=== PATIENT | female | born 1985 | race Caucasian/White ===

== ENCOUNTER 2019-09-29 02:27 | Inpatient (IN) | payer BC, OTHER ==
[~2019-09-29] VITALS: Ht 160 cm; Wt 72.7 kg
[2019-09-29 02:42] VITALS: BP 124/69
[2019-09-29] MEDS ORDERED: D5%-LACTATED RINGERS 1,000 ML IV SCH (02:57)
[2019-09-29] MEDS ORDERED: LACTATED RINGERS 1,000 ML IV SCH (02:57)
[2019-09-29] MEDS ORDERED: OXYTOCIN 30U/ 0.9% NaCL 500ML 500 ML IV ONE (02:57)
[2019-09-29] MEDS ORDERED: NEWBORN KIT ONE (03:00)
[2019-09-29] MEDS ORDERED: CALCIUM CARBONATE 500 MG TAB.CHEW PO PRN (03:00)
[2019-09-29] MEDS ORDERED: FENTANYL PF 100 MCG/2ML IV PRN (03:00)
[2019-09-29] MEDS ORDERED: TERBUTALINE 1 MG/ML, 1ML IVPush PRN (03:00)
[2019-09-29] MEDS ORDERED: ONDANSETRON 2MG/ML, 2ML IVPush PRN (03:00)
[2019-09-29] MEDS ORDERED: FENTANYL PF 100 MCG/2ML IVPush PRN (03:00)
[2019-09-29] MEDS ORDERED: OXYTOCIN 30U/ 0.9% NaCL 500ML 500 ML ONE (03:00)
[2019-09-29] MEDS ORDERED: TERBUTALINE 1 MG/ML, 1ML SQ PRN (03:00)
[2019-09-29] MEDS ORDERED: PLEASE ENTER ALLERGIES MC SCH (03:30)
[2019-09-29 03:34] LABS: BASOPHILS # (AUTO) 0.03 x10^3/uL (0-0.1); BASOPHILS % (AUTO) 0 % (0-1); EOSINOPHILS # (AUTO) 0.01 x10^3/uL (0-0.4); EOSINOPHILS % (AUTO) 0 % (1-7); LYMPHOCYTES # (AUTO) 1.31 x10^3/uL (1-3.4); LYMPHOCYTES % (AUTO) 8 % (22-44); MD NO; MEAN CORPUSCULAR HEMOGLOBIN 30.4 pg (27.0-34.8); MEAN CORPUSCULAR HGB CONC 33.6 g/dL (32.4-35.8); MEAN CORPUSCULAR VOLUME 90.5 fL (80-100); MEAN PLATELET VOLUME 8.6 fL (7.4-10.4); MONOCYTES # (AUTO) 0.74 x10^3/uL (0.2-0.8); MONOCYTES % (AUTO) 5 % (2-9); NEUTROPHILS # (AUTO) 14.25 x10^3/uL (1.8-6.8); NEUTROPHILS % (AUTO) 87 % (42-75); PLATELET COUNT 236 x10^3/uL (130-400); RED BLOOD COUNT 4.07 x10^6/uL (3.82-5.3); RED CELL DISTRIBUTION WIDTH 14.3 % (9.6-15.2)
[2019-09-29] MEDS: OXYTOCIN 30U/ 0.9% NaCL 500ML 500 ML IV SCH ×2 (09:56→19:56)
[2019-09-29] MEDS ORDERED: MISOPROSTOL 200 MCG TABLET PR PRN (10:00)
[2019-09-29] MEDS ORDERED: METHYLERGONOVINE 0.2 MG/ML IM PRN (10:00)
[2019-09-29] MEDS ORDERED: OXYcodone/APAP 5/325MG TABLET PO PRN ×2 (10:00)
[2019-09-29] MEDS ORDERED: ACETAMINOPHEN 325 MG TABLET PO PRN (10:00)
[2019-09-29] MEDS ORDERED: DOCUSATE 100 MG CAPSULE PO PRN (10:00)
[2019-09-29] MEDS ORDERED: SIMETHICONE 80 MG CHEW TAB PO PRN (10:00)
[2019-09-29] MEDS ORDERED: CARBOPROST TROMETHAMINE 250 MCG/ML, 1ML IM PRN (10:00)
[2019-09-29 10:24] VITALS: BP 109/59
[2019-09-29] MEDS ORDERED: PREN1TAB60 PO (10:29)
[2019-09-29 12:05] VITALS: BP 113/64
[2019-09-29] MEDS: IBUPROFEN 600 MG TABLET PO PRN ×2 (12:16→18:36)
[2019-09-29 16:11] VITALS: BP 105/65
[2019-09-29 18:02] LABS: MEAN CORPUSCULAR HEMOGLOBIN 30.1 pg (27.0-34.8); MEAN CORPUSCULAR HGB CONC 33.2 g/dL (32.4-35.8); MEAN CORPUSCULAR VOLUME 90.9 fL (80-100); MEAN PLATELET VOLUME 8.9 fL (7.4-10.4); PLATELET COUNT 232 x10^3/uL (130-400); RED BLOOD COUNT 3.88 x10^6/uL (3.82-5.3); RED CELL DISTRIBUTION WIDTH 14.1 % (9.6-15.2)
[2019-09-29 18:17] LABS: MD YES
[2019-09-29 18:19] LABS: <PLATELET ESTIMATE> ADEQUATE; <PLT MORPHOLOGY> NORMAL PLT MORPH; <RBC MORPHOLOGY> NORMAL; BAND#(MANUAL) 2.82 x10^3/uL; BANDS%(MANUAL) 12 % (0-7); LYMPH#(MANUAL) 1.18 x10^3/uL (1-3.4); LYMPHS% (MANUAL) 5 % (22-44); MONOS#(MANUAL) 1.18 x10^3/uL (0.3-2.7); MONOS% (MANUAL) 5 % (2-9); SEG#(MANUAL) 18.33 x10^3/uL (1.8-6.8); SEGS% (MANUAL) 78 % (42-75)
[2019-09-29 19:30] VITALS: BP 108/66
[2019-09-29 23:59] VITALS: BP 101/64
[2019-09-30 04:05] VITALS: BP 101/62
[2019-09-30] MEDS: OXYTOCIN 30U/ 0.9% NaCL 500ML 500 ML IV SCH (05:56)
[2019-09-30 07:45] VITALS: BP 104/66
[2019-09-30] MEDS ORDERED: PRENATAL VIT/IRON/FA 1 EACH TABLET PO SCH (09:00)
[2019-09-30] MEDS ORDERED: IBUP200T49 PO (13:20)
== END 2019-09-30 14:20 | disposition home or self-care (01) | DRG 807 ==
LOC: LDOP 02:27 → EDIP 03:07 → LDIP 03:13 → 2NW 11:53
PROVIDERS: ADMIT Obstetrics & Gynecology; ATTEND Obstetrics & Gynecology
PROC: 10E0XZZ Delivery of Products of Conception, External Approach (ICD-10-PCS; principal; 2019-09-29)
PROC: 0HQ9XZZ Repair Perineum Skin, External Approach (ICD-10-PCS; 2019-09-29)
DX: O77.0 Labor and delivery complicated by meconium in amniotic fluid (principal); Z37.0 Single live birth; O26.893 Other specified pregnancy related conditions, third trimester; O70.0 First degree perineal laceration during delivery; Z3A.40 40 weeks gestation of pregnancy; Z67.10 Type A blood, Rh positive
CPT/HCPCS: 36415; 85025; 86592; 86850; 86900; G0378; J2590